=== PATIENT | female | born 1995 | race Caucasian/White ===

== ENCOUNTER 2020-12-08 22:04 | Emergency (ER) | payer OTHER ==
[~2020-12-08 22:04] MED LIST: NORCO 5-325 TA1 EACH PO
== END 2020-12-09 07:55 | disposition home or self-care (01) ==
LOC: ER1 22:04
DX: O98.511 Other viral diseases complicating pregnancy, first trimester (principal); Z23 Encounter for immunization; U07.1 COVID-19; Z3A.13 13 weeks gestation of pregnancy
CPT/HCPCS: 99283; M0243

== ENCOUNTER 2021-05-29 16:20 | Inpatient (IN) | payer OTHER ==
[~2021-05-29] VITALS: Ht 160 cm; Wt 105.2 kg
[2021-05-31] MEDS ORDERED: FEROSUL325 MG PO (06:39)
[2021-05-31 06:54] LABS: HEMOGLOBIN 11.4 gm/dl (12.3-15.3); RED BLOOD COUNT 3.89 M/UL (4.00-5.10); WHITE BLOOD COUNT 9.6 K/UL (4.5-11.0)
[2021-06-01 07:20] LABS: HEMOGLOBIN 10.9 gm/dl (12.3-15.3)
[2021-06-02] MEDS ORDERED: IBUPROFEN800 MG PO (12:35)
[2021-06-02] MEDS ORDERED: HEMOCYTE324 MG PO (12:35)
[2021-06-02] MEDS ORDERED: COLACE100 MG PO (12:35)
== END 2021-06-02 12:36 | disposition home or self-care (01) | DRG 807 ==
LOC: LBRF 16:20 → OB 05-31 05:40
PROVIDERS: Obstetrics & Gynecology; ADMIT Obstetrics & Gynecology
PROC: 3E0234Z Introduction of Serum, Toxoid and Vaccine into Muscle, Percutaneous Approach (ICD-10-PCS; principal; 2021-05-31)
PROC: 10E0XZZ Delivery of Products of Conception, External Approach (ICD-10-PCS; 2021-05-31)
PROC: 0KQM0ZZ Repair Perineum Muscle, Open Approach (ICD-10-PCS; 2021-05-31)
PROC: 3E033VJ Introduction of Other Hormone into Peripheral Vein, Percutaneous Approach (ICD-10-PCS; 2021-05-31)
PROC: 10907ZC Drainage of Amniotic Fluid, Therapeutic from Products of Conception, Via Natural or Artificial Opening (ICD-10-PCS; 2021-05-31)
PROC: 4A1H7CZ Monitoring of Products of Conception, Cardiac Rate, Via Natural or Artificial Opening (ICD-10-PCS; 2021-05-31)
PROC: 10H073Z Insertion of Monitoring Electrode into Products of Conception, Via Natural or Artificial Opening (ICD-10-PCS; 2021-05-31)
PROC: 10H07YZ Insertion of Other Device into Products of Conception, Via Natural or Artificial Opening (ICD-10-PCS; 2021-05-31)
DX: O24.420 Gestational diabetes mellitus in childbirth, diet controlled (principal); Z37.0 Single live birth; O70.1 Second degree perineal laceration during delivery; O99.334 Smoking (tobacco) complicating childbirth; F17.200 Nicotine dependence, unspecified, uncomplicated; Z20.822 Contact with and (suspected) exposure to COVID-19; O99.824 Streptococcus B carrier state complicating childbirth; Z23 Encounter for immunization; Z82.49 Family history of ischemic heart disease and other diseases of the circulatory system; Z83.438 Family history of other disorder of lipoprotein metabolism and other lipidemia; Z3A.38 38 weeks gestation of pregnancy; Z83.42 Family history of familial hypercholesterolemia
CPT/HCPCS: 82800; 82962; 85014; 85018; 85025; 90715; U0003

== ENCOUNTER 2021-12-31 22:36 | Emergency (ER) | payer OTHER ==
[~2021-12-31 22:36] MED LIST changes: +COLACE100 MG PO; +FEROSUL325 MG PO; +HEMOCYTE324 MG PO; +IBUPROFEN800 MG PO
[2021-12-31 23:21] LABS: HEMOGLOBIN 12.7 gm/dl (12.3-15.3); RED BLOOD COUNT 4.47 M/UL (4.00-5.10); WHITE BLOOD COUNT 8.9 K/UL (4.5-11.0)
[2021-12-31 23:42] LABS: BUN/CREATININE RATIO 18 (0-10)
== END 2022-01-01 02:29 | disposition home or self-care (01) ==
LOC: ER1 22:36
PROVIDERS: Physician Assistant
DX: R10.11 Right upper quadrant pain (principal); R10.32 Left lower quadrant pain; R10.13 Epigastric pain; R11.2 Nausea with vomiting, unspecified
CPT/HCPCS: 80053; 81001; 83690; 84703; 85025; 96372; 99284; J1885